=== PATIENT | female | born 1975 | race Caucasian/White ===

== ENCOUNTER 2025-01-31 06:35 | Emergency (ER) | payer BC ==
[2025-01-31] MEDS ORDERED: Sodium Chloride 0.9% 10 ML Syringe FLUSH PRN (07:14)
[2025-01-31] MEDS: Sodium Chloride 0.9% 1,000 ML IV ONE ×2 (07:20→08:29)
[2025-01-31 07:35] LABS: BASOPHILS ABSOLUTE AUTO 0.1 x10-3/uL (0.0-0.1); BASOPHILS PERCENT AUTO 0.9 % (0.2-1.5); EOSINOPHILS ABSOLUTE AUTO 0.2 x10-3/uL (0.0-0.8); EOSINOPHILS PERCENT AUTO 2.9 % (0.6-8.1); HEMATOCRIT 42.1 % (34.2-48.2); HEMOGLOBIN 13.9 g/dL (11.4-15.5); LYMPHOCYTES ABSOLUTE AUTO 2.3 x10-3/uL (1.0-4.4); LYMPHOCYTES PERCENT AUTO 28.1 % (18.4-52.1); MEAN CORPUSCULAR HEMOGLOBIN 25.9 pg (23.9-33.9); MEAN CORPUSCULAR HGB CONC 33.1 g/dL (31.9-34.8); MEAN CORPUSCULAR VOLUME 78.5 fL (76.7-100.5); MONOCYTES ABSOLUTE AUTO 0.5 x10-3/uL (0.3-1.0); MONOCYTES PERCENT AUTO 6.1 % (4.4-15.7); PLATELET COUNT,PLT 169 x10(3)uL (151-488); RED BLOOD CELL COUNT 5.36 x10(6)uL (3.60-5.20); RED CELL DISTRIBUTION WIDTH 14.5 % (12.3-16.5); WHITE BLOOD CELL COUNT,WBC 8.1 x10-3/uL (3.0-10.3)
[2025-01-31] MEDS: Insulin Regular, Human 100 Units/ML 10 ML Vial SUBCUT ONE (07:38)
[2025-01-31 07:40] LABS: BLOOD UREA NITROGEN,BUN 13 mg/dL (7-18); BUN/CREATININE RATIO 10.8 (9-20); CALCIUM 9.2 mg/dL (8.6-10.2); CARBON DIOXIDE,CO2 26 mmol/L (21-32); CHLORIDE,CL 97 mmol/L (100-110); CREATININE 1.2 mg/dL (0.55-1.02); EST CRCL DRUG DOSING (CG) 46.82 mL/min; ESTIMATED GFR 54 mL/min (>60); POTASSIUM,K 4.2 mmol/L (3.5-5.3); SODIUM,NA 129 mmol/L (135-145)
[2025-01-31 07:46] LABS: ALANINE AMINOTRANSFERASE,ALT 44 U/L (12-36); ALBUMIN 3.4 g/dL (3.5-5.2); ALKALINE PHOSPHATASE 133 IU/L (56-112); ASPARTATE AMNIOTRANSFERASE,AST 19 IU/L (5-25); BILIRUBIN TOTAL 0.4 mg/dL (0.1-1.3); CREATINE KINASE,CK 31 IU/L (60-160); PROTEIN TOTAL,TP 6.9 g/dL (6.0-8.0)
[2025-01-31 07:48] LABS: HEMOGLOBIN A1C 13.6 % (<5.7)
[2025-01-31 07:56] LABS: GLUCOSE RANDOM 544 mg/dL (80-116)
[2025-01-31 07:57] LABS: LACTIC ACID 2.6 mmol/L (0.4-2.0)
[2025-01-31 08:09] LABS: APPEARANCE,URINE CLEAR (CLEAR); BILIRUBIN,URINE NEGATIVE (NEGATIVE); COLOR,URINE YELLOW (YELLOW); GLUCOSE,URINE >1000 mg/dL (NORMAL); KETONES,URINE NEGATIVE (NEGATIVE); LEUKOCYTE ESTERASE,URINE NEGATIVE (NEGATIVE); NITRITE,URINE NEGATIVE (NEGATIVE); OCCULT BLOOD,URINE MODERATE (NEGATIVE); PROTEIN,URINE NEGATIVE (NEGATIVE); UROBILINOGEN,URINE NORMAL (NEGATIVE)
[2025-01-31 08:22] LABS: BACTERIA,URINE OCCASIONAL (NS); RBC,URINE 0-5 (0-5); SQUAMOUS EPITHELIAL CELLS,UR OCCASIONAL (NS,R,O); WBC,URINE 0-5 (0-5)
== END 2025-01-31 12:13 | disposition home or self-care (01) ==
LOC: EDBD → FB.ED 06:35 → EDUNIT# 06:35 → FB.ED 12:13
DX: E11.65 Type 2 diabetes mellitus with hyperglycemia (principal); E03.9 Hypothyroidism, unspecified; Z88.5 Allergy status to narcotic agent; Z88.0 Allergy status to penicillin
CPT/HCPCS: 36415; 80053; 81001; 82550; 82947; 83036; 83605; 85025; 96360; 99284; A9270; J7030